=== PATIENT | male | born 1990 | race African-American/Black ===

== ENCOUNTER 2018-09-15 21:32 | Emergency (ER) | payer MEDICAID ==
[~2018-09-15] VITALS: Ht 180.3 cm; Wt 79.4 kg
[2018-09-15 21:39] VITALS: BP 110/75
--- NOTE | 2018-09-15 21:41 | NUR ---
TO [facility] A/W BED, AMB, VSS NASAL SWAB SENT TO [facility]
--- NOTE | 2018-09-15 22:14 | NUR ---
PT AMBULATED TO BED 5
--- NOTE | 2018-09-15 22:27 | NUR ---
27 YO M BIB SELF CO PRODUCTIVE COUGH, FEVER, CHILLS, N/V, 10/10 BODY ACHES X 6 DAYS. PT HAS WET, PERSISTENT COUGH AT THIS TIME. -- PMH: ASTHMA, ANXIETY, DEPRESSION PT POSITIONED FOR COMFORT. HOB ELEVATED. BED IN LOWEST POSITION. NO APPARENT DISTRESS AT THIS TIME.
--- NOTE | 2018-09-15 23:55 | NUR ---
[facility] in [facility] - 09/15/[address] Camp evaluating patient at bedside.
--- NOTE | 2018-09-15 23:55 | NUR ---
DR. GODINEZ EVALUATING AT BEDSIDE.
[2018-09-16] MEDS ORDERED: KETOROLAC 30 MG/ML VIAL IM ONE (00:20)
[2018-09-16 00:34] VITALS: BP 134/77
--- NOTE | 2018-09-16 00:34 | NUR ---
DISCHARGE INSTRUCTIONS PROVIDED. 2/10 GENERAL BODY ACHES. PAIN IMPROVED. AFEBRILE. VERBALIZED UNDERSTANDING OF DC INSTRUCTIONS. ALL QUESTIONS ANSWERED.
== END 2018-09-16 00:34 | disposition home or self-care (01) ==
LOC: MED 21:32
DX: J06.9 Acute upper respiratory infection, unspecified (principal); J45.909 Unspecified asthma, uncomplicated
CPT/HCPCS: 87804; 96372; 99283; J1885